=== PATIENT | male | born 1990 | race African-American/Black ===

== ENCOUNTER 2016-11-02 17:16 | Emergency (ER) | payer BC ==
[2016-11-02 17:22] VITALS: BP 156/95; PULSE 66; RESP 16; TEMP 98.1; O2SAT 96
--- NOTE | 2016-11-02 18:00 | EDPHY ---
H & P Stated Complaint: Requests med refill for clonapam, xanax, and gabapentin Time Seen by Provider: 11/02/16 17:47 HPI/ROS: CHIEF COMPLAINT: Medication refill HISTORY OF PRESENT ILLNESS: Patient is a 26-year-old man with a history of severe anxiety. He group in [place] with his dad his doctor. Most recently has been in [place] and treated there by his psychiatrist with Klonopin, Xanax and gabapentin as well as Cymbalta. He moved here to [place] and has an appointment with his psychiatrist in 2 weeks but is running out of his medication. He states that he has already or out of Xanax and his last Klonopin and gabapentin will be tonight. He has not had any withdrawal symptoms. He denies suicidality or depression. REVIEW OF SYSTEMS: Constitutional: denies: chills, fever, recent illness, recent injury EENTM: denies: blurred vision, double vision, nose congestion Respiratory: denies: cough, shortness of breath Cardiac: denies: chest pain, irregular heart rate, lightheadedness, palpitations Gastrointestinal/Abdominal: denies: abdominal pain, diarrhea, nausea, vomiting, blood streaked stools Genitourinary: denies: dysuria, frequency, hematuria, pain Musculoskeletal: denies: joint pain, muscle pain Skin: denies: lesions, rash, jaundice, bruising Neurological: denies: headache, numbness, paresthesia, tingling, dizziness, weakness Hematologic/Lymphatic: denies: blood clots, easy bleeding, easy bruising Immunologic/allergic: denies: HIV/AIDS, transplant EXAM: GENERAL: Well-appearing, well-nourished and in no acute distress. HEAD: Atraumatic, normocephalic. EYES: Pupils equal round and reactive to light, extraocular movements intact, sclera anicteric, conjunctiva are normal. ENT: TMs normal, nares patent, oropharynx clear without exudates. Moist mucous membranes. NECK: Normal range of motion, supple without lymphadenopathy or JVD. LUNGS: Breath sounds clear to auscultation bilaterally and equal. No wheezes rales or rhonchi. HEART: Regular rate and rhythm without murmurs, rubs or gallops. ABDOMEN: Soft, nontender, normoactive bowel sounds. No guarding, no rebound. No masses appreciated. BACK: No CVA tenderness, no spinal tenderness, step-offs or deformities EXTREMITIES: Normal range of motion, no pitting or edema. No clubbing or cyanosis. NEUROLOGICAL: Cranial nerves II through XII grossly intact. Normal speech, normal gait. 5/5 strength, normal movement in all extremities, normal sensation PSYCH: Normal mood, normal affect. SKIN: Warm, dry, normal turgor, no visible rashes or lesions. Source: Patient Exam Limitations: No limitations - Personal History Current Tetanus/Diphtheria Vaccine: Unsure Current Tetanus Diphtheria and Acellular Pertussis (TDAP): Unsure - Medical/Surgical History Hx Asthma: No Hx Chronic Respiratory Disease: No Hx Diabetes: No Hx Cardiac Disease: No Hx Renal Disease: No Hx Cirrhosis: No Hx Alcoholism: No Hx HIV/AIDS: No Hx Splenectomy or Spleen Trauma: No Other PMH: depression. r shoulder reconstruction - Family History Significant Family History: No pertinent family hx - Social History Smoking Status: Current some day smoker Alcohol Use: Sober Drug Use: None Constitutional: Initial Vital Signs Temperature (C) 36.7 C 11/02/16 17:19 Heart Rate 66 11/02/16 17:19 Respiratory Rate 16 11/02/16 17:19 Blood Pressure 156/95 H 11/02/16 17:19 O2 Sat (%) 96 11/02/16 17:19 O2 Delivery Mode Room Air Allergies/Adverse Reactions: No Known Allergies Allergy (Unverified 11/02/16 17:18) Home Medications: Medication Instructions Recorded ALPRAZolam [Xanax 1 MG (*)] 1 mg PO BID PRN #14 tab 11/02/16 Alprazolam 11/02/16 CLONAZEPAM 11/02/16 Cymbalta 11/02/16 Gabapentin 11/02/16 Gabapentin 600 mg PO BID #30 tablet 11/02/16 clonazePAM [Klonopin (*)] 0.5 mg PO BID #30 tab 11/02/16 Medical Decision Making ED Course/Re-evaluation: The patient is clean and well-spoken and seems like a straight shooter. We discussed the fact that we typically do not refill medications from the emergency department. He did try to contact crisis Center and they referred him here. Told him that I will refill his medications to last him until his appointment but that this is a 1 time plan. He understands and agrees with this plan. He is grateful. He does have his pill bottles with him. Differential Diagnosis: Partial list of the Differential diagnosis considered include but were not limited to; anxiety, depression, medication refill and although unlikely based on the history and physical exam, I also considered withdrawal, infection. I discussed these differential diagnoses and the plan with the patient as well as the usual and expected course. The patient understands that the diagnosis is provisional and that in medicine we are not always correct and that further workup is often warranted. Usual and customary warnings were given. All of the patient's questions were answered. The patient was instructed to return to the emergency department should the symptoms at all worsen or return, otherwise to followup with the physician as we discussed. Departure - Departure Disposition: Home, Routine, Self-Care Clinical Impression: Medication refill, Anxiety Condition: Fair Instructions: Anxiety (ED), Medicine Refill (ED) Referrals: [facility] [Provider Group] - As per Instructions Prescriptions: ALPRAZolam [Xanax 1 MG (*)] 1 mg PO BID PRN #14 tab PRN Reason: Anxiety clonazePAM [Klonopin (*)] 0.5 mg PO BID #30 tab Gabapentin 600 mg PO BID #30 tablet
== END 2016-11-02 18:11 | disposition home or self-care (01) ==
DX: Z76.0 Encounter for issue of repeat prescription (principal); F41.9 Anxiety disorder, unspecified; F17.200 Nicotine dependence, unspecified, uncomplicated